=== PATIENT | male | born 1980 | race Two or more races ===

== ENCOUNTER 2019-11-11 13:24 | Outpatient (CLI) | payer OTHER | END 2019-11-11 13:36 | disposition home or self-care (01) | LOC: SONOGRAMA 13:24 | PROVIDERS: ATTEND General Practice | DX: R10.13 Epigastric pain (principal); R22.9 Localized swelling, mass and lump, unspecified ==

== ENCOUNTER → 2019-11-11 14:03 | Outpatient (CLI) | payer OTHER | END | disposition home or self-care (01) | LOC: LAB 14:03 | PROVIDERS: ATTEND General Practice | DX: R10.13 Epigastric pain (principal); R22.9 Localized swelling, mass and lump, unspecified; Z20.828 Contact with and (suspected) exposure to other viral communicable diseases; Z12.11 Encounter for screening for malignant neoplasm of colon ==

== ENCOUNTER → 2021-04-20 08:00 | Outpatient (CLI) | payer OTHER ==
[~2021-04-20 08:00] MED LIST: PROPECIA1 MG; TRAZODONE HCL50 MG
== END | disposition home or self-care (01) ==
LOC: LAB 08:00 → ADM 08:45 → EDSTATUS 04-21 08:45 → CIR.AMB 04-21 08:45
PROVIDERS: ATTEND Surgery
DX: K43.6 Other and unspecified ventral hernia with obstruction, without gangrene (principal); Z03.818 Encounter for observation for suspected exposure to other biological agents ruled out; I10 Essential (primary) hypertension; R10.9 Unspecified abdominal pain; Z20.822 Contact with and (suspected) exposure to COVID-19

== ENCOUNTER 2021-06-30 07:12 | Day surgery (SDC) | payer OTHER ==
[2021-06-30] MEDS ORDERED: TYLENOL ARTHRI650 MG PO (09:25)
[2021-06-30] MEDS ORDERED: NEURONTIN300 MG PO (09:25)
[2021-06-30] MEDS ORDERED: MIRALAX17 GM PO (09:25)
[2021-06-30] MEDS ORDERED: ULTRAM50 MG PO (09:25)
== END 2021-06-30 12:50 | disposition home or self-care (01) ==
LOC: CIR.AMB 07:12
PROVIDERS: ATTEND Surgery
DX: K43.6 Other and unspecified ventral hernia with obstruction, without gangrene (principal); I11.9 Hypertensive heart disease without heart failure; Z85.9 Personal history of malignant neoplasm, unspecified